=== PATIENT | male | born 1960 | race Caucasian/White ===

== ENCOUNTER 2024-12-23 12:04 | Outpatient (REF) | payer MEDICARE, MEDICAID, SELFPAY ==
[2024-12-23 12:21] LABS: MANUAL DIFF FLAG NO
--- OUTSIDE RECORDS SUMMARY | 2024-12-23 13:06 | XMS_ITS | Clinical Summary ---
Author Organization [facility] Address [address] [place] [address] [address] [place] [address] Care Team Providers Care Pricing Consultant Name Role Phone Unavailable Primary Care Provider Unavailabl e Immunizations Immunization Administration Dates Next Due Moderna Covid-19 Vaccine 6+ Bivalent 08/30/2022 Social History Tobacco Use Types Packs/Day Years Used Date Smoking Tobacco: Never Assessed Sex and Gender Information Value Date Recorded Sex Assigned at Male 08/30/2022 10:42 AM EST Legal Sex Male 10:38 AM EST Gender Identity Male 08/30/2022 10:42 AM EST Sexual Orientation Straight 08/30/2022 10 :42 AM EST Plan of Treatment Health Maintenance Due Date Last Done Comments CT Colonography 1960 Colonoscopy 1960 Colorectal Cancer Screening 1960 Depression Screening 1960 FIT DNA/Cologuard 1959 FIT 1960 FOBT 1960 Lipid Panel 1960 Sigmoidoscopy 1959 Alcohol/Substance Use Screening 1971 Tobacco Screening 1971 DTaP/Tdap/Td Vaccines (1 - Tdap) 1978 Pneumococcal Vaccine: 50+ Years (1 of 1 - PCV) 2009 Zoster Vaccines (1 of 2) 2009 COVID-19 Vaccine (2023- season) 2024 08/03/2023, 08/30/2022, 09/28/2021, Additional history exists Influenza Vaccine (#1) 2024 07/15/2023, 2020 RSV Patients and Patients Aged 60 years or older (1 - 1-dose 75+ series) 2034 HIB Vaccines Aged Out No longer eligi ble based on patient's age to complete this topic HPV Vaccines Aged Out No longer eligi ble based on patient's age to complete this topic Hepatitis A Vaccines Aged Out No long er eligible based on patient's age to complete this topic Hepatitis B Vaccines Aged Out No long er eligible based on patient's age to complete this topic IPV Vaccines Aged Out No longer eligi ble based on patient's age to complete this topic Meningococcal B Vaccine Aged Out No l onger eligible based on patient's age to complete this topic Meningococcal Vaccine Aged Out No ovidio coleen eligible based on patient's age to complete this topic RSV under 20 months Aged Out No longe r eligible based on patient's age to complete this topic Rotavirus Vaccines Aged Out No longer eligible based on patient's age to complete this topic
[2024-12-23 13:33] LABS: Basophils Percent Auto 0.5 % (0-2); Eosinophils Absolute Auto 0.3 X10*3/uL (0.0-0.4); Eosinophils Percent Auto 5.1 % (0-4); Hematocrit 43.6 % (42.0-52.0); Hemoglobin 14.5 g/dl (14.0-18.0); Imm Gran Abs Auto 0.02 X10*3/uL (0.00-0.03); Imm Gran Pct Auto 0.3 % (0.0-0.4); Lymphocytes Percent Auto 30.9 % (20-40); Mean Corpuscular HGB Conc 33.3 g/dl (31.0-36.0); Mean Corpuscular Hemoglobin 31.1 pg (27.0-33.0); Mean Corpuscular Volume 93.6 fL (80.0-98.0); Mean Platelet Volume 10.8 fL (9.4-12.4); Monocytes Absolute Auto 0.7 X10*3/uL (0.1-1.2); Neutrophils Absolute Auto 3.5 x10*3/uL (2.0-8.3); Neutrophils Percent Auto 53.2 % (45-73); Platelet Count 272 X10*3/uL (160-400); Red Blood Count 4.66 X10*6/uL (4.60-5.80); Red Cell Distribution Width 14.6 % (11.0-16.0); White Blood Count 6.5 X10*3/uL (4.8-10.8)
[2024-12-23 14:31] LABS: Estimated Average Glucose 146 mg/dL; Hemoglobin A1C 192.4471 umol/L; Hemoglobin A1c % 6.7 % (<6.0); Total Hemoglobin (HGBA1C) 3845.0926 umol/L
[2024-12-23 14:41] LABS: Alanine Aminotransferase 58 U/L (0-40); Albumin Level 4.1 g/dL (3.5-5.0); Anion Gap 13 (12-20); Aspartate Amino Transferase 49 U/L (5-37); Bilirubin Total 0.3 mg/dL (0.0-1.0); Blood Urea Nitrogen 10 mg/dL (9-16); Calcium 9.6 mg/dL (8.4-10.2); Carbon Dioxide 24 mmol/L (22-29); Chloride 109 mmol/L (96-108); Cholesterol 195 mg/dL (<200); Estimated Glomerular Filt Rate > 60; Glucose Random 148 mg/dL (60-115); HDL Cholesterol 32 mg/dL (>40); LDL Cholesterol Calculated 122 mg/dL (<100); Potassium 3.6 mmol/L (3.3-5.1); Sodium 142 mmol/L (135-145); Total Protein 8.2 g/dL (6.5-8.0); Triglycerides 208 mg/dL (<150)
[2024-12-23 14:58] LABS: Alkaline Phosphatase 105 U/L (39-117)
[2024-12-23 15:16] LABS: Prostate Specific Antigen 15.93 ng/mL (<0.05-4.0)
== END 2024-12-23 12:05 | disposition home or self-care (01) ==
LOC: HO.LAB 12:04
PROVIDERS: PCP Internal Medicine; Visit Provider Internal Medicine
DX: E11.65 Type 2 diabetes mellitus with hyperglycemia (principal); E78.00 Pure hypercholesterolemia, unspecified; F32.9 Major depressive disorder, single episode, unspecified; G20.A1 Parkinson's disease without dyskinesia, without mention of fluctuations; G81.13 Spastic hemiplegia affecting right nondominant side; R97.20 Elevated prostate specific antigen [PSA]; Z91.199 Patient's noncompliance with other medical treatment and regimen due to unspecified reason; Z12.5 Encounter for screening for malignant neoplasm of prostate
CPT/HCPCS: 36415; 80053; 80061; 83036; 84153; 85025

== ENCOUNTER 2024-12-29 10:30 | Outpatient (AMB) | payer MEDICARE, MEDICAID, SELFPAY ==
--- NOTE | 2024-12-29 10:42 | A.OFFVIS_ITS ---
Vital Signs 12/29/24 10:51 Height 5 ft 7 in BMI Reason not done Patient refused/unable BP 116/72 Blood Pressure Location Lt brachial Position Sitting Pulse 77 Intake Visit Reasons: 6 mth f/up s/p echo r/s 11/13/24 Intake Note: 6 month follow-up after echo with ekg feelng good Residential Care Facility Manager Required: Yes Residential Care Facility Manager Services: Residential Care Facility Manager Offered & Declined Building Services Supervisor: Building Services Supervisor Present Accompanied by: Daughter Allergies No Known Allergies [No Known Allergies*] Allergy (Verified 10/28/24 15:31) Medication List - Last Reconciled 12/29/24 by Jamaal Rayo MD alcohol swabs (Alcohol Prep Pads) 1 pad topical QIDACHS aspirin 81 mg PO DAILY bisacodyl (Dulcolax (bisacodyl)) 10 mg (2 x 5 mg) PO ONCE 1 day blood sugar diagnostic (FreeStyle Lite Strips) As directed blood-glucose meter (FreeStyle [place] Lite kit) As directed gabapentin 600 mg PO TID glipizide ER 5 mg PO DAILY insulin glargine (Lantus Solostar U-100 Insulin) 20 units (0.2 mL) subcut QPM lancets As directed lisinopril-hydrochlorothiazide 20-12.5 mg 1 tab PO DAILY metformin 1,000 mg PO BID metoprolol succinate ER 100 mg PO ONCE omeprazole 20 mg PO DAILY pen needle, diabetic As directed pen needle, diabetic (BD Ultra-Fine [place] Pen Needle) As directed polyethylene glycol 3350 (Miralax) 238 grams PO ONCE PRN 1 day rosuvastatin 10 mg PO BEDTIME sertraline 50 mg PO DAILY terazosin 5 mg PO BEDTIME 90 days HPI Comments Details: Jan returns for follow-up. He was last seen in 2022. At that time, diagnosed was moderate aortic stenosis. He has not returned back for follow-up till now. Daughter states that patient had a stroke June 2023 and after that, has been disabled. He has got significant right-sided weakness and cannot walk or do anything physical. He needs our help for everything. He has not complained of any clear-cut symptoms like angina but he is not ambulatory either. When he is lying down, some nonspecific chest tightness but not clear what it is as it is positional. Many risk factors including diabetes, hypertension, dyslipidemia. [facility] Medical History (Updated 12/29/24 @ 12:23 by Jamaal Rayo MD) Stroke Hyperlipidemia, unspecified Type 2 diabetes mellitus with unspecified complications Fatty infiltration of liver HTN (hypertension) Surgical History History of surgery on lower extremity Family History Maternal Grandmother Heart problem Lung cancer Mother Diabetes Father Stroke (cerebrum) Social History Household Members: Spouse Housing: House Do you presently have visiting nurse or other home services: No Comment: iso Patient Tobacco Use Status: Never used Tobacco service: No Current occupational status: unemployed and disabled Review of Systems Const Denies chills, Denies fatigue, Denies fever(s), Denies frequent falls, Denies weakness, Denies weight gain and Denies weight loss ENT Denies dizziness Card Denies chest pain, Denies leg edema, Denies lightheadedness, Denies palpitations, Denies dyspnea, Denies dyspnea on exertion, Denies orthopnea and Denies other (loss of consciousness) Resp Denies cough, Denies dyspnea and Denies dyspnea on exertion GI Denies hematochezia and Denies change in stool character Musc Denies abnormal gait, Denies muscle weakness, Denies numbness, Denies radiating pain into limb and Denies tingling Neuro Denies abnormal gait, Denies dizziness, Denies frequent falls, Denies numbness, Denies tingling and Denies weakness Endo Denies fatigue and Denies palpitations Physical Exam Vital Signs: Last Vital Signs Pulse 77 12/29/24 10:51 BP 116/72 12/29/24 10:51 Const General: comfortable and no acute distress Orientation/consciousness: patient oriented x3 HEENT Other: Unremarkable Head: Yes normal to inspection Neck Neck: Yes normal visual inspection Chest Chest palpation & inspection: normal inspection of the chest Resp Auscultation: clear to auscultation bilaterally Cardio Palpation: normal PMI Heart sounds: S1 normal heart sound present, S2 abnormal (Absent), no gallops, Murmur heart sound present systolic III/ and at the right sternal border and no rubs GI Palpation (GI): Soft to palpation Back/Spine/Pelvis Other: unremarkable Skin General skin exam: no rashes or lesions noted Neuro General: patient oriented x3 Extrem General: Yes normal to inspection Psych Mental Status: mental status grossly normal Assessment & Plan Assessment & Plan (1) Nonrheumatic aortic (valve) stenosis: Code(s): I35.0 - Nonrheumatic aortic (valve) stenosis Category: Medical Plan: Per echocardiogram in 2022, he had moderate aortic stenosis. Could very well have severe aortic stenosis but now. He needs an echocardiogram for follow-up evaluation. Further Management we will probably entail TAVR but will be complicated by the fact that he has had a major stroke with residual weakness. To be decided. (2) Stroke: Code(s): I63.9 - Cerebral infarction, unspecified Category: Medical Plan: Per [facility] neurology consult, left-sided intraparenchymal hemorrhage. Residual right-sided weakness. Plan Discussion Notes During the visit, we discussed the concerns of valvular heart disease, specifically its potential progression, warranting an echocardiogram. The need for a possible valve replacement procedure was explained, considering the risks and benefits. The patient was informed that results will guide further action. Chest pain management was discussed, linking its occurrence with sleep patterns. We arranged for a follow-up in one month to evaluate echocardiogram results and review ongoing management plans. Responsibility for current care and next steps was clearly communicated with the attending family member. Patient was informed and verbally consented to the use of an ambient scribe for clinic note documentation during this visit. Orders: Orders CA echo transthoracic complete Today I35.0 - Nonrheumatic aortic (valve) stenosis Patient Instructions: - Follow your blood pressure medication as directed. - Monitor for any worsening chest pain, especially if it becomes consistent. - Inform your caregiver about any new or worsening symptoms. - Attend the echocardiogram appointment as scheduled. - Return for follow-up in one month. - Seek immediate care if you experience severe chest pain or difficulty breathing. Coding Level of Care Code Est Pt Level 4 (26185) Complex EM visit Add On G2211 Diagnoses Nonrheumatic aortic (valve) stenosis I35.0 Stroke I63.9
[2024-12-29 10:51] VITALS: BP 116/72; PULSE 77
--- OUTSIDE RECORDS SUMMARY | 2024-12-29 11:16 | XMS_ITS | Clinical Summary ---
Author Organization [facility] Address [address] [place] [address] [address] [place] [address] Care Team Providers Care Drama Therapist Name Role Phone Unavailable Primary Care Provider [...]
== END 2024-12-29 11:22 | disposition home or self-care (01) ==
LOC: HO.HCS 10:31
PROVIDERS: PCP Internal Medicine; Visit Provider Internal Medicine
DX: I35.0 Nonrheumatic aortic (valve) stenosis (principal); I63.9 Cerebral infarction, unspecified
CPT/HCPCS: 93010; 99214; G2211

== ENCOUNTER → 2024-12-29 10:30 | Outpatient (BNVA) | payer MEDICARE, MEDICAID, SELFPAY | PROVIDERS: PCP Internal Medicine; Visit Provider Internal Medicine | DX: Z13.89 Encounter for screening for other disorder (principal) | CPT/HCPCS: 93005; 99212 ==

== ENCOUNTER → 2024-12-29 12:44 | Outpatient (REF) | payer MEDICARE, MEDICAID, SELFPAY ==
--- NOTE | 2024-12-29 12:49 | CA_ITS ---
Transthoracic Echocardiogram Patient (Last, First, Middle): Jan Nicolas D Gender: Male Date of : 1960 Age: 64 Procedure Date: 12/29/2024 Procedure Type: Transthoracic Echocardiogram Location: OP Height: 170.18 cm Weight: 89.81 kg BSA: 2.01 m2 Heart Rate: bpm BP: 132 / 80 mmHg Case Folder: Referring MD: Jamaal Rayo MD Perch Machine Inspector: Nathan Rodriguez MD Symptoms: I35.0 - Nonrheumatic aortic (valve) stenosis Study Quality: Technically Difficult due to pt mobility ECG Rhythm: Atrial Fibrillation Conclusions: - 1. Technically difficult study 2. LV ejection fraction appears to be normal with LV EF of 60 65% with moderate LVH 3. Moderate aortic stenosis by gradient 4. Normal calculated RV systolic pressure Findings Left Ventricle Normal left ventricular size and systolic function. There is moderately increased left ventricular wall thickness. The visually estimated ejection fraction is between 60-65%. Regional wall motion abnormalities can not be excluded due to suboptimal endocardial definition. Spectral Doppler is indicative of an impaired relaxation filling pattern. Right Ventricle The right ventricle was not well visualized. Atria The left atrium is mildly dilated. Interatrial shunt cannot be excluded. The right atrium was not well visualized. Aortic Valve There is moderate calcification of the aortic valve. There is moderate aortic valve stenosis. The mean gradient is 28 mmHg. Mitral Valve The mitral valve was not well visualized. Pulmonic Valve The pulmonic valve was not well visualized. Tricuspid Valve The tricuspid valve was not well visualized. The right ventricular systolic pressure is normal. The right ventricular systolic pressure is 19 mmHg. Great Vessels The aorta was not well visualized. The pulmonary artery was not well visualized. Venous The inferior vena cava was not well visualized. Pericardium/Pleural The pericardium was not well visualized. Prior Study Comparison no previous study in the last 5 years for comparison Measurements 2D Linear Measurements IVSd: 1.52 0.6-0.9/0.6-1.0 cm LVIDd: 3.75 3.9-5.3/4.2-5.9 cm LVIDd Index: 1.87 2.4-3.2/2.2-3.1 cm/m2 LVIDs: 2.40 2.0-3.6 cm LVPWd: 1.44 0.7-1.1 cm Ao Root: 3.60 2.1-3.5 cm LA Diam: 2.80 2.7-3.8/3.0-4.0 cm LAIDs Index: 1.39 1.5-2.3 cm/m2 LV Mass: 259.35 67-162/88-224 g LV Mass Index: 129.03 43-95/49-115 g/m2 LVOT Diam: 2.10 3.0+(-)1.3 cm Mitral Valve MV Pk E: 0.73 MV PK A: 0.74 MV Decel Time: 224.00 E/A: 1.00 E'Lateral: 6.53 E'Medial: 4.90 E/E' Med: 14.90 E/E' Lat: 11.20 PHT: 66.00 MVA PHT: 3.33 Decel [place]: 3.26 Aortic Valve AoV Pk Damian: 3.42 AoV Mn Damian: 2.49 AoV VTI: 0.62 AoV Pk Grad: 47.00 Aov Mn Grad: 28.00 JAMES Cont.VTI: 1.46 LVOT LVOT Pk Damian: 1.08 LVOT Mn Damian: 0.75 LVOT VTI: 0.26 LVOT Pk Grad: 5.00 LVOT Mn Grad: 3.00 LVOT Diam: 2.10 LVOT Area: 3.46 Diastolic Function MV Pk E: 0.73 MV Pk A: 0.74 E/A: 1.00 E'Medial: 4.90 E/E' Med: 14.90 E' Laterial: 6.53 E/E' Lat: 11.20 Right Ventricle TAPSE (mm): 24.00 TVS' Damian: 14.00 Tricuspid Valve TR Pk Damian: 2.00 TR Pk Grad: 16.00 RA Press: 3.00 RVSP: 19.00 Great Vessels Aorta Ao Root-2D: 3.60 2.0-3.7 cm Ao Asc: 3.60 2.1-3.4 cm Pulmonary Valve PV Pk Damian: 1.03 Peak PV Grad: 4.00 Updated in Other Vendor System with Status of Final Nathan Rodriguez MD electronically signed on 12/30/2024 4:04:11 PM with status of Final
== END ==
LOC: HO.CARD 12:44
PROVIDERS: PCP Internal Medicine; Visit Provider Internal Medicine
DX: I35.0 Nonrheumatic aortic (valve) stenosis (principal)
CPT/HCPCS: 93306

== ENCOUNTER 2025-01-20 14:29 | Outpatient (AMB) | payer MEDICARE, MEDICAID, SELFPAY ==
--- NOTE | 2025-01-20 14:40 | A.OFFVIS_ITS ---
Intake Visit Reasons: BPH/elevated PSA/hx stones Intake Note: Patient is present for BPH/ELEVATED PSA/HX STONES Urology Medication:TERAZOSIN Antibiotic Allergy:NONE Blood Thinner:ASPIRIN TODAY'S PVR:420ML'S Test Kitchen Home Economist Required: No Allergies No Known Allergies (No Known Allergies*) Allergy (Verified 01/20/25 14:50) HPI Comments Details: Jan is a pleasant male. He is seen for the following urologic conditions - nephrolithiasis - lower urinary tract symptoms Has not been seen in 3 years Presentation with difficulty with urination and elevated PSA PSA 10/24 2.5, 04/27 4.2, 12/27 16 Had a stroke early 2023 Has not been on medications Restart terazosin and finasteride 2 weeks Levaquin Repeat PSA Lower urinary tract symptoms Ongoing weakness of stream Managed in-hospital Marquez catheter and Flomax - 08/26 Switched to terazosin 10/24 HB A1c 10/24 14, 12/27 6.7% Nephrolithiasis They are here for - further evaluation of nephrolithiasis - following admission with procedure in August 2020 Urolithiasis was diagnosed Prior treatment(s) include - August 2020 left ureteroscopy laser lithotripsy stent placement Prior imaging includes - August [address] - stone protocol left distal 8 mm ureteric stone - 10/24 renal ultrasound no stones - 03/27 renal ultrasound bilateral small cysts no stones Current therapeutic plan will be - continue with imaging surveillance [facility] Medical History (Updated 01/20/25 @ 15:22 by Colton Rivera MD) Stroke Hyperlipidemia, unspecified Type 2 diabetes mellitus with unspecified complications Fatty infiltration of liver HTN (hypertension) Surgical History History of surgery on lower extremity Family History Maternal Grandmother Heart problem Lung cancer Mother Diabetes Father Stroke (cerebrum) Social History Household Members: Spouse Housing: House Do you presently have visiting nurse or other home services: No Comment: iso Patient Tobacco Use Status: Never used Tobacco service: No Current occupational status: unemployed and disabled Office Procedures Post Void Residual Post Residual Void Post Void Residual (PVR): 420 [id number] Void Residual by ultrasound Assessment & Plan Assessment & Plan (1) Bladder outlet obstruction: Code(s): N32.0 - Bladder-neck obstruction Category: Medical (2) Urine retention: Code(s): R33.9 - Retention of urine, unspecified Category: Medical (3) Elevated PSA: Code(s): R97.20 - Elevated prostate specific antigen [PSA] Category: Medical Plan Two week follow-up repeat PSA Orders: Orders PSA,Total (Free>4and<10) 2 Months N32.0 - Bladder-neck obstruction Medications: New finasteride 5 mg PO DAILY 90 tabs 1RF 90 days N13.8 - Other obstructive and reflux uropathy, N32.0 - Bladder-neck obstruction, N40.1 - Benign prostatic hyperplasia with lower urinary tract symptoms, R33.9 - Retention of urine, unspecified levofloxacin 500 mg PO DAILY 14 tabs 0RF 14 days N12 - Tubulo-interstitial nephritis, not specified as acute or chronic Refilled terazosin 5 mg PO BEDTIME 90 caps 1RF 90 days N32.0 - Bladder-neck obstruction, N40.1 - Benign prostatic hyperplasia with lower urinary tract symptoms, R35.0 - Frequency of micturition Patient Instructions: This note is constructed using voice recognition software. While every effort has been made to ensure accuracy radiology special procedure tech errors may have been included. Imaging studies, laboratory and physical exam results were discussed and reviewed in detail. No major barriers to patient understanding were identified. An opportunity to ask questions regarding the treatment plan was provided. All questions were answered. The patient expressed understanding and agreement with the above treatment plan. The patient is aware they should contact our office by phone for worsening of their current condition or the appearance of new urologic symptoms. Compliance is encouraged with any medications and followup testing that is ordered. It is a privilege to participate in the urologic care of your patient. If you have any questions or concerns regarding treatment for the above conditions, or other urologic issues, please do not hesitate to contact me. The office telephone contact is [phone]. Sincerely, Dr Colton Rivera MD, [facility] - Urology Compassionate Specialist Care for the Genitourinary System Coding Level of Care Code New Pt Level 4 (14815) Diagnoses Bladder outlet obstruction N32.0 Urine retention R33.9 Elevated PSA R97.20 CPT Codes Post Residual Void - PVR CPT Code: 75633-Uybl Void Residual by ultrasound ([id number])
--- OUTSIDE RECORDS SUMMARY | 2025-01-20 16:39 | XMS_ITS | Clinical Summary ---
Author Organization [facility] Address [address] [place] [address] [address] [place] [address] Care Team Providers Care Purchasing Clerk Name Role Phone Unavailable Primary Care Provider [...] 08/30/2022, 09/28/2021, Additional history exists Influenza Vaccine (Season Ended) 2025 07/15/2023, 06/19/2021 RSV Patients and Patients Aged 60 years [...] topic Meningococcal Vaccine Aged Out No ovidio coelen eligible based on patient's age to complete this topic RSV under 20 months Aged Out No longe r eligible based on patient's age to complete this topic Rotavirus Vaccines Aged Out No longer eligible based on patient's age to complete this topic
== END 2025-01-20 15:37 | disposition home or self-care (01) ==
LOC: HO.HUSH 14:29
PROVIDERS: PCP Internal Medicine; Visit Provider Urology
DX: N32.0 Bladder-neck obstruction (principal); R33.9 Retention of urine, unspecified; R97.20 Elevated prostate specific antigen [PSA]
CPT/HCPCS: 99204

== ENCOUNTER → 2025-01-20 14:29 | Outpatient (BNVA) | payer MEDICARE, MEDICAID, SELFPAY | PROVIDERS: PCP Internal Medicine; Visit Provider Urology | DX: N32.0 Bladder-neck obstruction (principal); R33.9 Retention of urine, unspecified; R97.20 Elevated prostate specific antigen [PSA] | CPT/HCPCS: 51798; 99202 ==

== ENCOUNTER 2025-02-14 22:24 | Emergency (ER) | payer MEDICARE, MEDICAID, SELFPAY ==
[2025-02-14 22:26] VITALS: BP 130/77; PULSE 74; RESP 16; TEMP 36.9; O2SAT 96; BMI 40.3
[2025-02-14 23:08] VITALS: BP 114/60; PULSE 77; RESP 18; TEMP 36.9; O2SAT 94
--- NOTE | 2025-02-14 23:11 | ED.MALEGU ---
HPI - Male Genitourinary General Chief complaint: Urogenital-Male Stated complaint: has kim, blood coming out of it Time Seen by Provider: 02/14/25 23:10 Source: patient and family Mode of arrival: EMS Limitations: no limitations History of Present Illness ED Provider: HPI Narrative: Patient's history of right hemiparesis BPH status post Kim catheter for last several months which was replaced 2 weeks ago at [facility] comes here as noticed lyla hematuria hour prior to arrival patient has had a CT scan and workup done at [facility] 2 weeks ago which was normal. Patient is not on any anticoagulants except on aspirin Related Data Home Medications ?Medication ?Instructions ?Recorded ?Confirmed aspirin 81 mg tablet,delayed 81 mg PO DAILY 04/24/22 12/29/24 release metformin 1,000 mg tablet 1,000 mg PO BID 04/24/22 12/29/24 pen needle, diabetic 32 gauge x #50 ea 04/24/22 05/15/23 (BD Ultra-Fine [place] Pen Needle) lisinopril 20 1 tab PO DAILY 02/13/23 12/29/24 mg-hydrochlorothiazide 12.5 mg tablet rosuvastatin 10 mg tablet 10 mg PO BEDTIME 02/13/23 12/29/24 gabapentin 600 mg tablet 600 mg PO TID 12/29/24 12/29/24 glipizide 5 mg tablet, extended 5 mg PO DAILY 12/29/24 12/29/24 release 24 hr metoprolol succinate 100 mg 100 mg PO ONCE 12/29/24 12/29/24 tablet,extended release 24 hr sertraline 50 mg tablet 50 mg PO DAILY 12/29/24 12/29/24 Previous Rx's ?Medication ?Instructions ?Recorded alcohol swabs (Alcohol Prep Pads) 1 pad topical QIDACHS #200 ea 10/18/21 blood sugar diagnostic (FreeStyle #10 ea 10/18/21 Lite Strips) blood-glucose meter (FreeStyle #1 ea 10/18/21 [place] Lite kit) insulin glargine 100 unit/mL (3 20 unit (0.2 mL) subcut QPM #3 mL 10/18/21 mL) subcutaneous pen (Lantus Solostar U-100 Insulin) lancets 32 gauge #100 ea 10/18/21 pen needle, diabetic 32 gauge x #100 ea 10/18/21 1/ bisacodyl 5 mg tablet,delayed 10 mg (2 x 5 mg) PO ONCE 11/26/22 release (Dulcolax (bisacodyl)) colonoscopy prep 1 day #2 tabs polyethylene glycol 3350 17 238 g PO ONCE PRN laxative effect 11/26/22 gram/dose oral powder (Miralax) 1 day #238 grams omeprazole 20 mg capsule,delayed 20 mg PO DAILY #30 caps 05/23/23 release finasteride 5 mg tablet 5 mg PO DAILY 90 days #90 tabs 01/20/25 levofloxacin 500 mg tablet 500 mg PO DAILY 14 days #14 tabs 01/20/25 terazosin 5 mg capsule 5 mg PO BEDTIME 90 days #90 caps 01/20/25 Allergies Allergy/AdvReac Type Severity Reaction Status Date / Time No Known Allergies (No Known Allergy Verified 02/14/25 22:34 Allergies*) Review of Systems Review of Systems: Yes all other systems are reviewed and are negative PMFSH Past Medical History Medical History Stroke Hyperlipidemia, unspecified Type 2 diabetes mellitus with unspecified complications Fatty infiltration of liver HTN (hypertension) Surgical History History of surgery on lower extremity Family History Family History Maternal Grandmother Heart problem Lung cancer Mother Diabetes Father Stroke (cerebrum) Social History Social History Household Members: Spouse Housing: House Do you presently have visiting nurse or other home services: No Comment: iso Patient Tobacco Use Status: Never used Tobacco Advance Directives: No Advance Directives Information Provided: Yes Do you have a plan to hurt others: No Plan service: No Current occupational status: unemployed and disabled Physical Exam Vital Signs: Vital Signs: Last Vital Signs Temp 98.0 F 02/15/25 00:24 Pulse 74 02/15/25 00:24 Resp 20 02/15/25 00:24 BP 115/69 02/15/25 00:24 Pulse Ox 95 02/15/25 00:24 O2 Del Method Room Air 02/15/25 00:24 BMI result Body Mass Index 40.3 Appearance: Alert. Oriented X3. No acute distress. Eyes: PERRLA, No Nystagmus ENT: Pharynx normal. Oral Mucosa moist Neck: Normal inspection. Neck supple. CVS: Normal heart rate and rhythm. Pulses normal. Respiratory: No respiratory distress. Equal air entry bilateral, no wheezing/rales/rhonchi Abdomen: Soft and nontender. Bowel sounds are present, no mass palpable, no CVA tenderness : Kim catheter in place with light pinkish tinged urine no blood clots bladder scan showed empty bladder Skin: Skin warm and dry. Normal skin color. Normal skin turgor. Extremities: No lower extremity edema. No calf tenderness Neuro: Oriented X 3. Residual right hemiparesis No sensory deficit.No cerebellar signs , cranial nerves II-XII intact Medications Administered Discontinued Medications Generic Name Dose Route Start Last Admin Trade Name Freq PRN Reason Stop Dose Admin Cefuroxime Axetil 500 mg 02/15/25 00:18 02/15/25 00:34 Cefuroxime Axetil 500 Mg Tablet PO 02/15/25 00:19 500 mg ONCE ONE Administration Medical Decision Making Medical Decision Making [facility] Narrative: Patient with indwelling Kim catheter comes here with lyla hematuria without any blood clots started just prior to arrival bladder was flushed and urine got cleared UA showed UTI with RBCs will prescribe cefuroxime patient advised to follow up with urologist Lab Data MDM Lab Attestation statement: I reviewed the patient's lab results. 02/14/25 23:13 02/14/25 23:13 Labs: Lab Results 02/14/25 02/14/25 Range/Units 23:13 23:55 WBC 8.8 (4.8-10.8) X10*3/uL RBC 4.41 L (4.60-5.80) X10*6/uL Hgb 14.0 (14.0-18.0) g/dl Hct 40.9 L (42.0-52.0) % MCV 92.7 (80.0-98.0) fL MCH 31.7 (27.0-33.0) pg MCHC 34.2 (31.0-36.0) g/dl RDW 13.8 (11.0-16.0) % Plt Count 249 (160-400) X10*3/uL MPV 10.5 (9.4-12.4) fL Immature Gran % (Auto) 0.3 (0.0-0.4) % Neut % (Auto) 48.5 (45-73) % Lymph % (Auto) 32.2 (20-40) % [place] % (Auto) 11.1 H (2-11) % Eos % (Auto) 7.4 H (0-4) % Baso % (Auto) 0.5 (0-2) % Lymph # (Auto) 2.8 (1.2-4.9) X10*3/uL [place] # (Auto) 1.0 (0.1-1.2) X10*3/uL Eos # (Auto) 0.7 H (0.0-0.4) X10*3/uL Baso # (Auto) 0.0 (0.0-0.2) X10*3/uL Abs Immat Gran (auto) 0.03 (0.00-0.03) X10*3/uL Absolute Neuts (auto) 4.3 (2.0-8.3) x10*3/uL Absolute Nucleated RBC 0.000 (0.0-0.012) X10*3/uL Nucleated RBC % (auto) 0.0 (0.0-0.2) /100WBC Sodium 142 (135-145) mmol/L Potassium 3.6 (3.3-5.1) mmol/L Chloride 108 (96-108) mmol/L Carbon Dioxide 25 (22-29) mmol/L Anion Gap 13 (12-20) BUN 16 (9-16) mg/dL Creatinine 1.27 (0.5-1.4) mg/dL Estim Creat Clear Calc 68.6 Estimated GFR 57 Random Glucose 206 H (60-115) mg/dL Calcium 9.0 D (8.4-10.2) mg/dL Total Bilirubin 0.2 (0.0-1.0) mg/dL AST 54 H (5-37) U/L ALT 63 H (0-40) U/L Alkaline Phosphatase 119 H (39-117) U/L Total Protein 7.9 (6.5-8.0) g/dL Albumin 4.0 (3.5-5.0) g/dL Urine Color Red A Urine Appearance Turbid Urine pH 5.0 (5.0-9.0) Ur Specific [place] >= 1.030 H (1.005-1.025) Urine Protein 100 (2+) H (Neg-Trace) mg/dL Urine Glucose (UA) Negative (Negative) mg/dL Urine Ketones Negative (Negative) mg/dL Urine Blood Moderate (2+) H (Negative) Urine Nitrite Negative (Negative) Ur Leukocyte Esterase Moderate (2+) H (Negative) Urine RBC >20 H (0-2) /HPF Urine WBC 21-50 H (0-5) /HPF Ur Squamous Epith Cells 3-5 (0-2) /HPF Urine Bacteria 4+ (None Seen) Hyaline Casts 3-5 (0-2) /LPF Urine Yeast Present Discharge Plan Discharge Clinical Impression: Urinary tract infection Patient Disposition: Home, Self-Care Instructions: Catheter-associated Urinary Tract Infection (ED) Additional Instructions: Drink plenty of fluids Take antibiotics as prescribed Report to the ER if increased blood or pain Follow up with urologist Prescriptions: No Action Lantus Solostar U-100 Insulin 100 unit/mL (3 mL) insulin pen 20 unit subcut QPM Qty: 3 0RF (DME) pen needle, diabetic 32 gauge x 1/4 needle See Rx Instructions .Route Qty: 100 0RF Rx Instructions: As directed (DME) blood-glucose meter [FreeStyle [place] Lite] Kit See Rx Instructions .Route Qty: 1 0RF Rx Instructions: As directed alcohol swabs [Alcohol Prep Pads] Pads, Medicated 1 pad topical QIDACHS Qty: 200 0RF (DME) lancets 32 gauge misc See Rx Instructions .Route Qty: 100 0RF Rx Instructions: As directed (DME) FreeStyle Lite Strips Strip See Rx Instructions .ROUTE .MEDSUPPLY Qty: 10 0RF Rx Instructions: As directed (DME) pen needle, diabetic [BD Ultra-Fine [place] Pen Needle] 32 gauge x 5/32 needle See Rx Instructions .ROUTE DAILY Qty: 50 Rx Instructions: As directed metformin 1,000 mg tablet 1,000 mg PO BID aspirin 81 mg tablet,delayed release (DR/EC) 81 mg PO DAILY metoprolol succinate 100 mg tablet extended release 24 hr 100 mg PO ONCE omeprazole 20 mg capsule,delayed release(DR/EC) 20 mg PO DAILY Qty: 30 5RF sertraline 50 mg tablet 50 mg PO DAILY glipizide 5 mg tablet extended release 24hr 5 mg PO DAILY gabapentin 600 mg tablet 600 mg PO TID bisacodyl [Dulcolax (bisacodyl)] 5 mg tablet,delayed release (DR/EC) 10 mg PO ONCE 1 Days Qty: 2 0RF Rx Instructions: Take 2 tablets by mouth at 12:00pm the day before your procedure. polyethylene glycol 3350 [Miralax] 17 gram/dose powder 238 g PO ONCE PRN (Reason: laxative effect) 1 Days Qty: 238 0RF Rx Instructions: Take as directed by mouth the day before your procedure. lisinopril-hydrochlorothiazide 20-12.5 mg tablet 1 tab PO DAILY rosuvastatin 10 mg tablet 10 mg PO BEDTIME terazosin 5 mg capsule 5 mg PO BEDTIME 90 Days Qty: 90 1RF finasteride 5 mg tablet 5 mg PO DAILY 90 Days Qty: 90 1RF levofloxacin 500 mg tablet 500 mg PO DAILY 14 Days Qty: 14 0RF Referrals: Colton Rivera MD [Physician, Urology] Referral Note: BPH/Kim catheter/UTI Print Language: Comoran
[2025-02-14 23:18] LABS: Hematocrit 40.9 % (42.0-52.0); Hemoglobin 14.0 g/dl (14.0-18.0); Imm Gran Abs Auto 0.03 X10*3/uL (0.00-0.03); Imm Gran Pct Auto 0.3 % (0.0-0.4); Lymphocytes Absolute Auto 2.8 X10*3/uL (1.2-4.9); MANUAL DIFF FLAG NO; Mean Corpuscular HGB Conc 34.2 g/dl (31.0-36.0); Mean Corpuscular Hemoglobin 31.7 pg (27.0-33.0); Mean Corpuscular Volume 92.7 fL (80.0-98.0); NRBC Abs Auto 0.000 X10*3/uL (0.0-0.012); NRBC Pct Auto 0.0 /100WBC (0.0-0.2); Platelet Count 249 X10*3/uL (160-400); Red Blood Count 4.41 X10*6/uL (4.60-5.80); White Blood Count 8.8 X10*3/uL (4.8-10.8)
--- NOTE | 2025-02-14 23:25 | PC.NURSE ---
family member reports increased confusion in addition to hematuria. pt is alert, disoriented to time. smoke inspector utilized. right sided hemiparesis. hx stroke, DMII. wheelchair bound. no volume read on bladder scan. stat lock not in place on arrival
[2025-02-14 23:32] LABS: Alanine Aminotransferase 63 U/L (0-40); Albumin Level 4.0 g/dL (3.5-5.0); Alkaline Phosphatase 119 U/L (39-117); Anion Gap 13 (12-20); Aspartate Amino Transferase 54 U/L (5-37); Blood Urea Nitrogen 16 mg/dL (9-16); Calcium 9.0 mg/dL (8.4-10.2); Carbon Dioxide 25 mmol/L (22-29); Chloride 108 mmol/L (96-108); Creatinine Clr Calc Pharmacy 68.6; Estimated Glomerular Filt Rate 57; Potassium 3.6 mmol/L (3.3-5.1); Sodium 142 mmol/L (135-145); Total Protein 7.9 g/dL (6.5-8.0)
[2025-02-15 00:05] LABS: Appearance Urine Turbid; Glucose Urine UA Negative (Negative); PH 5.0 (5.0-9.0); Specific Gravity - Urine >= 1.030 (1.005-1.025); UMIC TRIGGER UACC YES
[2025-02-15 00:13] LABS: UACC Culture Trigger YES
[2025-02-15 00:24] VITALS: BP 115/69; PULSE 74; RESP 20; TEMP 36.7; O2SAT 95
[2025-02-15 00:53] VITALS: BP 115/69; PULSE 74; RESP 20; TEMP 36.7; O2SAT 95
== END 2025-02-15 00:57 | disposition home or self-care (01) ==
PROVIDERS: Emergency Provider Internal Medicine; PCP Internal Medicine
DX: N39.0 Urinary tract infection, site not specified (principal); Z79.899 Other long term (current) drug therapy
CPT/HCPCS: 36415; 80053; 81001; 85025; 87086; 87088; 87186; 99283; 99284

== ENCOUNTER → 2025-03-01 09:36 | Outpatient (BNVA) | payer MEDICARE, MEDICAID, SELFPAY | PROVIDERS: PCP Internal Medicine; Visit Provider Urology | DX: R33.9 Retention of urine, unspecified (principal); R82.79 Other abnormal findings on microbiological examination of urine | CPT/HCPCS: 51700; 51798 ==

== ENCOUNTER 2025-03-17 12:15 | Outpatient (REF) | payer MEDICARE, MEDICAID, SELFPAY ==
--- OUTSIDE RECORDS SUMMARY | 2025-03-17 12:56 | XMS_ITS | Clinical Summary ---
Author Organization [employer] Address [address] [facility] [address] [place] [address] Care Team Providers Care Stewarding Supervisor Name Role Phone Unavailable Primary Care Provider [...] Alcohol/Substance Use Screening 1971 Tobacco Screening 1971 Pneumococcal Vaccine: 50+ Years (1 of 1 - PCV) 2009 COVID-19 Vaccine ( season) 2024 08/03/2023, 08/30/2022, 09/28/2021, Additional history exists Zoster Vaccines (2 of 2) 02/17/2025 12/23/2024 Influenza Vaccine (#1) 2025 07/15/2023, 2020 RSV Patients and Patients Aged 60 years or older (1 - 1-dose 75+ series) 2034 DTaP/Tdap/Td Vaccines (2 - Td or Tdap) 12/23/2034 12/23/2024 HIB Vaccines Aged Out No longer eligi [...]
[2025-03-17 14:56] LABS: PSA,Total (Free>4and<10) 8.99 ng/mL (0.00-4.00)
[2025-03-18 11:49] LABS: Free Prostate Spec Ag 0.6 ng/mL; Percent Free Prostate Spec Ag 8 % (calc) (>25)
== END 2025-03-17 12:16 | disposition home or self-care (01) ==
LOC: HO.LAB 12:15
PROVIDERS: PCP Internal Medicine; Visit Provider Urology
DX: N32.0 Bladder-neck obstruction (principal); Z12.5 Encounter for screening for malignant neoplasm of prostate
CPT/HCPCS: 36415; 84153; 84154

== ENCOUNTER 2025-03-25 09:04 | Outpatient (AMB) | payer MEDICARE, MEDICAID, SELFPAY ==
--- NOTE | 2025-03-25 09:07 | A.OFFVIS_ITS ---
Intake Visit Reasons: 2m/PSA/PVR Intake Note: Patient is present for 2 mo follow up c/o dysuria Urology Medication:TERAZOSIN,FINASTERIDE Antibiotic Allergy:NONE Blood Thinner:ASPIRIN Labs done 03/17/2025 : Fr PSA 0.6, % Fr PSA :8, Total PSA 7.6 TODAY'S PVR:[address] Research Engineer Required: No Accompanied by: Self / Same As Patient Allergies No Known Allergies (No Known Allergies*) Allergy (Verified 03/25/25 09:07) HPI Comments Details: Jan is a pleasant male. He is seen for the following urologic conditions - nephrolithiasis - lower urinary tract symptoms Two month follow-up Significant reduction in PVR from 420-147 Significant reduction in PSA on finasteride from 16.0-7.6 PSA 10/24 2.5, 04/27 4.2, 12/27 16. 03/29 7.6 8% Prior CVA 2023 with significant weakness Continue medications. Six-month follow-up repeat lab work. Elevated PSA 16 at initial presentation which is decreased to 7.6 with antibiotics and finasteride Lower urinary tract symptoms Ongoing weakness of stream Managed in-hospital Marquez catheter and Flomax - 08/26 Switched to terazosin 10/24 HB A1c 10/24 14, 12/27 6.7% Nephrolithiasis They are here for - further evaluation of nephrolithiasis - following admission with procedure in August 2020 Urolithiasis was diagnosed Prior treatment(s) include - August 2020 left ureteroscopy laser lithotripsy stent placement Prior imaging includes - August [address] - stone protocol left distal 8 mm ureteric stone - 10/24 renal ultrasound no stones - 03/27 renal ultrasound bilateral small cysts no stones Current therapeutic plan will be - continue with imaging surveillance [facility] Medical History Stroke Hyperlipidemia, unspecified Type 2 diabetes mellitus with unspecified complications Fatty infiltration of liver HTN (hypertension) Surgical History History of surgery on lower extremity Family History Maternal Grandmother Heart problem Lung cancer Mother Diabetes Father Stroke (cerebrum) Social History Household Members: Spouse Housing: House Do you presently have visiting nurse or other home services: No Comment: iso Patient Tobacco Use Status: Never used Tobacco service: No Current occupational status: unemployed and disabled Review of Systems Const Denies chills and Denies fever(s) Card Reports no additional complaints and Denies syncope Resp Denies cough GI Denies abdominal pain and Denies heartburn Reports as per HPI and Denies change in libido Neuro Denies syncope Psych Denies change in libido Endo Denies change in libido Physical Exam Const General: cooperative, healthy appearing, comfortable and no acute distress Orientation/consciousness: patient oriented x3 HEENT Face and sinus: Yes normal facial exam Mouth: moist mucous membranes Neck Neck: Yes normal visual inspection, Yes full ROM and Yes trachea midline Chest Chest palpation & inspection: normal inspection of the chest Resp Effort & Inspection: normal respiratory effort, able to speak in complete sentences and no respiratory distress GI Inspection: Yes normal to inspection Back/Spine/Pelvis Cervical Spine: normal cervical lordosis Thoracic/Lumbar Spine: thoracic and lumbar spine normal to inspection Skin General skin exam: no rashes or lesions noted Neuro General: patient oriented x3, gait normal, tone normal and moves all extremities Extrem General: Yes normal to inspection and Yes capillary refill normal Assessment & Plan Assessment & Plan (1) Bladder outlet obstruction: Code(s): N32.0 - Bladder-neck obstruction Category: Medical (2) Elevated PSA: Code(s): R97.20 - Elevated prostate specific antigen [PSA] Category: Medical Plan Six-month follow-up lab work Continue medication Orders: Orders PSA,Total (Free>4and<10) 6 Months R97.20 - Elevated prostate specific antigen [PSA] Medications: Refilled finasteride 5 mg PO DAILY 90 tabs 1RF 90 days N13.8 - Other obstructive and reflux uropathy, N32.0 - Bladder-neck obstruction, N40.1 - Benign prostatic hyperplasia with lower urinary tract symptoms, R33.9 - Retention of urine, unspecified terazosin 5 mg PO BEDTIME 90 caps 1RF 90 days N32.0 - Bladder-neck obstruction, N40.1 - Benign prostatic hyperplasia with lower urinary tract symptoms, R35.0 - Frequency of micturition Patient Instructions: This note is constructed using voice recognition software. While every effort has been made to ensure accuracy strength and conditioning coach errors may have been included. Imaging studies, laboratory and physical exam results were discussed and reviewed in detail. No major barriers to patient understanding were identified. An opportunity to ask questions regarding the treatment plan was provided. All questions were answered. The patient expressed understanding and agreement with the above treatment plan. The patient is aware they should contact our office by phone for worsening of their current condition or the appearance of new urologic symptoms. Compliance is encouraged with any medications and followup testing that is ordered. It is a privilege to participate in the urologic care of your patient. If you have any questions or concerns regarding treatment for the above conditions, or other urologic issues, please do not hesitate to contact me. The office telephone contact is [phone]. Sincerely, Dr Colton Rivera MD, [facility] - Urology Compassionate Specialist Care for the Genitourinary System Coding Level of Care Code Est Pt Level 3 (02830) Complex EM visit Add On G2211 Diagnoses Bladder outlet obstruction N32.0 Elevated PSA R97.20
--- OUTSIDE RECORDS SUMMARY | 2025-03-25 10:06 | XMS_ITS | Clinical Summary ---
Author Organization [employer] Address [address] [facility] [address] [place] [address] Care Team Providers Care Rock Wool Insulator Name Role Phone Unavailable Primary Care Provider [...]
== END 2025-03-25 09:42 | disposition home or self-care (01) ==
LOC: HO.HUSH 09:04
PROVIDERS: PCP Internal Medicine; Visit Provider Urology
DX: N32.0 Bladder-neck obstruction (principal); R97.20 Elevated prostate specific antigen [PSA]
CPT/HCPCS: 99213; G2211

== ENCOUNTER → 2025-03-25 09:04 | Outpatient (BNVA) | payer MEDICARE, MEDICAID, SELFPAY | PROVIDERS: PCP Internal Medicine; Visit Provider Urology | DX: N32.0 Bladder-neck obstruction (principal); R97.20 Elevated prostate specific antigen [PSA] | CPT/HCPCS: 99212 ==

== ENCOUNTER 2025-04-07 11:08 | Outpatient (AMB) | payer MEDICARE, MEDICAID, SELFPAY ==
--- NOTE | 2025-04-07 11:23 | A.OFFVIS_ITS ---
Vital Signs 04/07/25 11:24 Height 5 ft 6 in BMI Reason not done Patient refused/unable BP 120/68 Blood Pressure Location Lt brachial Position Sitting Pulse 84 Pulse Source Pulse Oximeter Intake Visit Reasons: 4 month f/up Ethics Manager Required: Yes Ethics Manager Services: Ethics Manager Offered & Declined Accompanied by: Daughter Allergies No Known Allergies (No Known Allergies*) Allergy (Verified 03/25/25 09:07) Medication List - Last Reconciled 04/07/25 by Jamaal Rayo MD alcohol swabs (Alcohol Prep Pads) 1 pad topical QIDACHS aspirin 81 mg PO DAILY bisacodyl (Dulcolax (bisacodyl)) 10 mg (2 x 5 mg) PO ONCE 1 day blood sugar diagnostic (FreeStyle Lite Strips) As directed blood-glucose meter (FreeStyle [place] Lite kit) As directed finasteride 5 mg PO DAILY 90 days gabapentin 600 mg PO TID glipizide ER 5 mg PO DAILY insulin glargine (Lantus Solostar U-100 Insulin) 20 units (0.2 mL) subcut QPM lancets As directed levofloxacin 500 mg PO DAILY 7 days lisinopril-hydrochlorothiazide 20-12.5 mg 1 tab PO DAILY metformin 1,000 mg PO BID metoprolol succinate ER 100 mg PO ONCE omeprazole 20 mg PO DAILY pen needle, diabetic As directed pen needle, diabetic (BD Ultra-Fine [place] Pen Needle) As directed polyethylene glycol 3350 (Miralax) 238 grams PO ONCE PRN 1 day rosuvastatin 10 mg PO BEDTIME sertraline 50 mg PO DAILY terazosin 5 mg PO BEDTIME 90 days HPI Comments Details: Jan returns for follow-up regarding aortic stenosis. From the cardiac standpoint, he does not have any specific symptoms. Daughter states that patient had a stroke June 2023 and after that, has been disabled. He has got significant right-sided weakness and cannot walk or do anything physical. He needs her help for everything. Many risk factors including diabetes, hypertension, dyslipidemia. Overall, about the same as before. He comes in a wheelchair with his daughter. [facility] Medical History Stroke Hyperlipidemia, unspecified Type 2 diabetes mellitus with unspecified complications Fatty infiltration of liver HTN (hypertension) Surgical History History of surgery on lower extremity Family History Maternal Grandmother Heart problem Lung cancer Mother Diabetes Father Stroke (cerebrum) Social History Household Members: Spouse Housing: House Do you presently have visiting nurse or other home services: No Comment: iso Patient Tobacco Use Status: Never used Tobacco service: No Current occupational status: unemployed and disabled Review of Systems Const Denies weakness ENT Denies dizziness Card Denies chest pain, Denies chest pain with activity, Denies syncope, Denies rapid heart rate, Denies pedal edema, Denies edema, Denies leg edema, Denies lightheadedness, Denies palpitations, Denies dyspnea, Denies dyspnea on exertion and Denies orthopnea Resp Denies cough, Denies dyspnea and Denies dyspnea on exertion GI Denies hematochezia and Denies change in stool character Musc Denies abnormal gait, Denies muscle cramps, Denies muscle weakness, Denies numbness, Denies radiating pain into limb and Denies tingling Neuro Denies abnormal gait, Denies dizziness, Denies syncope, Denies numbness, Denies tingling and Denies weakness Endo Denies palpitations Physical Exam Vital Signs: Last Vital Signs Pulse 84 04/07/25 11:24 BP 120/68 04/07/25 11:24 Const General: comfortable and no acute distress Orientation/consciousness: patient oriented x3 HEENT Other: Unremarkable Head: Yes normal to inspection Neck Neck: Yes normal visual inspection Chest Chest palpation & inspection: normal inspection of the chest Resp Auscultation: clear to auscultation bilaterally Cardio Palpation: normal PMI Heart sounds: S1 normal heart sound present, S2 abnormal (Absent), no gallops, Murmur heart sound present systolic III/ and at the right sternal border and no rubs GI Palpation (GI): Soft to palpation Back/Spine/Pelvis Other: unremarkable Skin General skin exam: no rashes or lesions noted Neuro General: patient oriented x3 Extrem General: Yes normal to inspection Psych Mental Status: mental status grossly normal Assessment & Plan Assessment & Plan (1) Nonrheumatic aortic (valve) stenosis: Code(s): I35.0 - Nonrheumatic aortic (valve) stenosis Category: Medical Plan: Per recent echocardiogram, mean gradient across aortic valve 22 mm Hg with a calculated valve area of 1.4Cm2. He is on severe but measurements as above while in the moderate range. We will follow up in 6 months with another study. I am not clear if he is going to be good TAVR candidate because of major stroke and residual weakness. To be decided. (2) Stroke: Code(s): I63.9 - Cerebral infarction, unspecified Category: Medical Plan: Per [facility] neurology consult, left-sided intraparenchymal hemorrhage. Residual right-sided weakness. Plan Discussion Notes Aortic valve stenosis is progressing, but it has not yet reached a severity that necessitates surgical intervention. The patient will be re-evaluated in six months to assess the progression of the stenosis and determine if surgical intervention becomes necessary. Patient was informed and verbally consented to the use of an ambient scribe for clinic note documentation during this visit. Orders: Orders CA echo transthoracic complete 6 Months I35.0 - Nonrheumatic aortic (valve) stenosis Patient Instructions: - Follow up in six months for re-evaluation of the aortic valve stenosis. - Monitor for any new symptoms such as chest pain or shortness of breath and report them immediately. Coding Level of Care Code Est Pt Level 4 (70139) Complex EM visit Add On G2211 Diagnoses Nonrheumatic aortic (valve) stenosis I35.0 Stroke I63.9
[2025-04-07 11:24] VITALS: BP 120/68; PULSE 84
--- OUTSIDE RECORDS SUMMARY | 2025-04-07 13:43 | XMS_ITS | Clinical Summary ---
Author Organization [employer] Address [address] [place] [address] [address] [place] [address] Care Team Providers Care Drawer In Jacquard Loom Name Role Phone Unavailable Primary Care Provider [...]
== END 2025-04-07 11:37 | disposition home or self-care (01) ==
LOC: HO.HCS 11:08
PROVIDERS: PCP Internal Medicine; Visit Provider Internal Medicine
DX: I35.0 Nonrheumatic aortic (valve) stenosis (principal); I63.9 Cerebral infarction, unspecified
CPT/HCPCS: 99214; G2211

== ENCOUNTER → 2025-04-07 11:08 | Outpatient (BNVA) | payer MEDICARE, MEDICAID, SELFPAY | PROVIDERS: PCP Internal Medicine; Visit Provider Internal Medicine | DX: I35.0 Nonrheumatic aortic (valve) stenosis (principal); I69.351 Hemiplegia and hemiparesis following cerebral infarction affecting right dominant side | CPT/HCPCS: 99212 ==